=== PATIENT | male | born 1940 | race Caucasian/White ===

== ENCOUNTER 2019-07-25 05:32 | Inpatient (IN) | payer MEDICARE, OTHER, SELFPAY ==
[2019-07-11 12:48] VITALS: BMI 28.7
[2019-07-25] VITALS (19 sets, daily range): BP systolic 73–140; BP diastolic 31–72; PULSE 62–84; RESP 12–20; TEMP 35.5–37; O2SAT 88–99; BMI 28.0
--- NOTE | 2019-07-25 | DI.RAD.S_ITS ---
PROCEDURE: XR PELVIS 1-2V INDICATIONS: TOTAL HIP TECHNIQUE: Intra-operative view of the pelvis and hip acquired. COMPARISON: None. FINDINGS: Bones: Intraoperative devices prior to placement of arthroplasty prostheses are in expected positions. No fractures or suspicious bony lesions. Soft tissues: Overlying surgical retractors are present, along with other intraoperative changes. IMPRESSION: Fluoroscopy guidance was provided intraoperatively for left total hip arthroplasty. Dictated by: Bert Pacheco M.D. on 07/25/2019 at 10:53 Approved by: Bert Pacheco M.D. on 07/25/2019 at 10:54
[2019-07-25] MEDS: CELECOXIB 200 MG CAPSULE PO (07:11)
[2019-07-25] MEDS: PREGABALIN 75 MG CAPSULE PO (07:11)
[2019-07-25] MEDS: LACTATED RINGERS 1,000 ML 42 ML IV ×3 (07:11→10:09)
[2019-07-25] MEDS: ACETAMINOPHEN 325 MG TABLET 975 MG PO ×3 (07:11→20:04)
--- NOTE | 2019-07-25 07:45 | DI.RAD.S_ITS ---
PROCEDURE: XR PELVIS 1-2V INDICATIONS: post op ERICA TECHNIQUE: Single view(s) of the pelvis acquired. COMPARISON: [facility], CR, XR PELVIS 1-2V, 07/25/2019, 10:07. FINDINGS: Bones: Patient is status post left total hip arthroplasty. Left hip alignment is anatomic. Mild to moderate right hip joint osteophytic changes are seen. No fracture or dislocation. Soft tissues: Expected postsurgical changes in left hip and thigh soft tissues are seen. IMPRESSION: Postop changes from left total hip arthroplasty with anatomic left hip alignment. Dictated by: Bert Pacheco M.D. on 07/25/2019 at 11:27 Approved by: Bert Pacheco M.D. on 07/25/2019 at 11:28
--- NOTE | 2019-07-25 07:45 | PM.PREOP ---
Pre-operative Note Interval Note History & Physical reviewed/Exam performed by Physician: Yes Changes to H&P: No
[2019-07-25] MEDS: CEFAZOLIN 1 GM VIAL IV (07:50)
[2019-07-25] MEDS: TRANEXAMIC ACID 1,000 MG VIAL 1000 MG INJ ×2 (08:28→10:14)
--- NOTE | 2019-07-25 08:38 | SUR.OPER ---
Supine, head on pillow, torso on pink pad positioner. Iliac crest at flex of foot end of table. Gel roll under operative hip. Both arms secured on arm boards <90 degrees abduction.
[2019-07-25] MEDS: MORPHINE 4 MG/ML INJ INJ (08:44)
[2019-07-25] MEDS: KETOROLAC 30 MG/ML VIAL IV (08:45)
[2019-07-25] MEDS: ROPIVACAINE 0.5% PF 5 MG/ML 20ML VIAL 60 ML INJ (08:45)
--- NOTE | 2019-07-25 10:45 | PM.OP.1 ---
Operative Date/Time/Diagnoses Date of procedure: 07/25/19 Time of procedure: 10:45 Pre-op diagnosis: Left hip degenerative joint disease Post-op diagnosis: same Procedure & Clinicians Procedure: Left total hip arthroplasty via direct anterior approach (CPT code 87727 with delivery assistant) Same procedure as scheduled: Yes Indications: Patient is an 79-year-old male with severe left hip DJD. The patient has pain with activities and at rest, limited ambulation and activity tolerance, difficulties with ADLs, and failure of conservative treatment. We have discussed the nature of condition, treatment options, risks and benefits, and patient elects to proceed with total hip arthroplasty via direct anterior approach and gives informed consent. Surgeon: Magdy Chung Field Sampling Technician: Philippe Quinn Anesthesia Type: General Operative Notes Closure Type: primary Specimen(s): none sent Prosthetic devices, grafts, tissues, transplants, or devices: Acetabulum: Cordova and Nephew R3 acetabular component size 54 mm Femoral component: Cordova and Nephew Anthology stem size 6 with high offset Femoral head: 36 mm + 4 cobalt chrome Estimated Blood Loss (mL): 200 Blood products transfused: none Procedure in detail: Patient brought to the operating room and after administration of IV antibiotics and satisfactory induction of anesthetic placed supine on the [place] table with both feet in the ski boots and all bony prominences well padded. Left hip and lower extremity prepped and draped in the usual sterile fashion. Incision created beginning 2 cm lateral and distal to the ASIS and carried sharply through the skin and skin subcutaneous tissues down to the fascia which was then divided longitudinally and the TFL muscle was stripped posteriorly, superior neck retractor then placed and a Gelpi retractor distally. Anterior femoral circumflex vessels were cauterized and the anterior capsule was entered with a medial inferior capsular release and a lateral posterior capsular excision. Location of the femoral neck cut was then identified fluoroscopically and created with the oscillating saw. Femoral head removed with the corkscrew device. Acetabular retractors then placed an acetabular labrum and osteophyte was excised with sequential reaming of the acetabulum to 53 mm with an excellent circumferential ream and fit with the trial. A size 54 mm Cordova and Nephew R3 acetabular component was selected inserted and impacted into position with excellent fixation and and position confirmed fluoroscopically. Permanent liner then inserted. Proximal femoral releases were then completed, and proximal femoral retractors placed the leg was extended externally rotated and abducted. The proximal femur was entered and chili pepper broach then placed which was still and a moderate amount of varus. Further lateral releases were performed and sequential broaching to 6 was performed with an excellent fit with the broach which was also confirmed fluoroscopically. Trial reductions performed yielded excellent position leg length and stability. The trial and broach were then removed and a permanent size 6 Cordova and Nephew anthology component was inserted and impacted into position with excellent position and fixation achieved which was confirmed fluoroscopically. Trial reduction was then performed the +4 ball which yielded excellent leg length range of motion and stability so the trial ball was exchanged for a 36 mm +4 cobalt chrome ball. Final reduction was performed and final fluoroscopic images demonstrated excellent position and fit of the implant excellent leg length. Stability was also checked to 90? of external rotation with the leg in the neutral position. Periarticular tissues were injected with combination of ropivacaine, morphine, and Toradol. The TFL fascia was repaired with a 1. Running Vicryl. Subcutaneous tissues closed with 2 O Vicryl an anchor intracuticular stitch as well as skin glue. Sterile dressings applied anesthetic terminated the patient taken to postanesthetic recovery in satisfactory condition. Complications: none Post-operative Condition: stable Disposition: PACU Plan for aftercare: Patient will be admitted to the acute care de, and anticipate discharge on postop day 1 with follow-up in office in 10-14 days. Outpatient physical therapy will be arranged and patient will continue to gradually increase activities as tolerated.
[2019-07-25] MEDS: SODIUM CHLORIDE 0.9% FLUSH 10 ML IV (12:44)
[2019-07-25] MEDS: LACTATED RINGERS 1,000 ML 125 ML IV ×2 (12:44→20:22)
--- NOTE | 2019-07-25 14:18 | PC.NURSE ---
AM shift pt arrived at 1130 from PACU.VSS, other than BP which is low at baseline (90's/70's). LR started at 125/hr. Aquacel CDI. Tolerating full liquids with no adverse effects. PT working with pt currently (1420) and tolerating well.
--- NOTE | 2019-07-25 15:00 | PT.IIE ---
Current Diagnoses Unilateral primary osteoarthritis, left hip (07/25/19) Other specified joint disorders, left knee (07/25/19) Surgery Performed Operation Date: 07/25/19 07:45 Actual Procedures p Total Hip Arthroplasty/Anterior Approach(Left) - Magdy Chung MD Surgical History (Last Updated 07/11/19 @ 13:13 by Loni Abbasi, RN) Hx of cholecystectomy (Acute) Hx of eye surgery (Acute ~2002) Hx of tonsillectomy (Acute) Medical History (Last Updated 07/11/19 @ 15:02 by Loni Abbasi RN) Acid reflux (Acute) Aortic valve disorder (Acute) Urbina's esophagus (Acute) BPH (benign prostatic hyperplasia) (Acute) Chest pain, atypical (Acute) HLD (hyperlipidemia) (Acute) HTN (hypertension) (Acute) Mitral valve disorder (Acute) Overactive bladder (Acute) Tricuspid valve disorder (Acute) Physical Therapy Inpatient Evaluation/Re-Eval M1 PT/OT-IP Prior Functional Status Start: 07/25/19 13:53 Freq: NEEDED Status: Active Protocol: Document 07/25/19 15:00 RS (Rec: 07/25/19 15:49 RS [email or web address]) Medical Review Prior Functional Status Medical History Reviewed Yes Diet/Fluid Consistency Regular Communication no known deficits Mobility and Gait ind without AD, denies falls though does endorse LLE giving out occassionally Activities of Daily Living and IADL's denies need for assist with self-care Social History Household Members spouse Living Arrangements House Number of Floors (Floors) Two Floors Number of Stairs To Enter/Railing? 3 steps with L ascending rail to lower level, 10 more step with L ascending rail to main floor Home Equipment Four Wheel Walker Employment Status Retired Additional Social History Comment also has a walking stick that he has been using on the stairs M2 PT-IP Current Condition Start: 07/25/19 13:53 Freq: NEEDED Status: Active Protocol: Document 07/25/19 15:00 RS (Rec: 07/25/19 15:49 RS [email or web address]) Physical Therapy Current Condition Current Condition Evaluation Date 07/25/19 Treatment Diagnosis L anterior ERICA Onset Date 07/25/19 Precautions Anterior Hip Precautions No Hip Extension,No Hip External Rotation Weight Bearing Status Weight Bearing Status Weight Bear as Tolerated M3 PT-IP Subjective Start: 07/25/19 13:53 Freq: NEEDED Status: Active Protocol: Document 07/25/19 15:00 RS (Rec: 07/25/19 15:49 RS [email or web address]) Subjective Physical Therapy Visit Type Type Initial Evaluation Visit Start Time 14:00 Visit Stop Time 15:00 Total Visit Minutes 60 Physical Therapy Visit Comments Patient Comments Pt reports feeling good, very motivated to participate. Patient Goals go home tomorrow Therapy Pain Assessment Pain When Pain Assessed At Rest Pain Present Pain Present Denied Pain M4 PT-IP Mobility and Gait Start: 07/25/19 13:53 Freq: NEEDED Status: Active Protocol: Document 07/25/19 15:00 RS (Rec: 07/25/19 15:49 RS [email or web address]) PT-Bed Mobility Assessment Supine to Sit Supine to Sit Standby Assistance,Head of Bed Elevated,Bedrails Scooting Scooting to Edge of Bed Standby Assistance PT-Transfer Assessment Sit to and From Stand Sit to and from Stand Contact Guard Assistance Equipment Transfer Assistive Device Gait Belt,Front Wheeled Walker Transfers Transfer Destination Bed,Chair Transfer Technique Stand Step Pivot Transfer Ability Level of Assist Contact Guard Assistance Comments Mobility Comments Pt used R foot under L ankle to pivot to EOB. To stand up pt kept bilat feet symmetrical and was able to stand right up without issue. Initially pt only able to take very small steps with transfers, but the longer he as up he was able to take more ideal step lengths. Pt was also a little shaky, almost ataxic at first but this improved during session. Gait Assessment Gait Gait Assistance Required: Contact Guard Assist Distance (Feet) 100 Able to Maintain Weight Bearing Status Yes During Gait Assistive Devices Assistive Device Gait Belt,Front Wheeled Walker Gait Deviations General Gait Pattern Ataxic,Decreased Stride Length ,Decreased Feet Clearance Factors Limiting Gait Function Factors Limiting Gait Function Decreased Activity Tolerance, Decreased Sensation,Decreased Strength,Poor Balance Comments Gait Comments Just as with transfers, pt was shaky and almost ataxic to begin with, almost as if pt's proprioception in L hip/knee wasn't 100% intact. Proprioception and sensation at GT/ankle was intact and not tested more proximally, but a local was used for this surgery so it might not have been completely worn off. Pt initially trying not to use the FWW very much, but control of the LLE worsened with this approach. Pt was encouraged to use BUE on walker more forcefully in LLE SLS, and this made a dramatic difference in pt's overall stability and gait quality. Pt able to walk 100ft without stopping, wanting to walk more , but due to previous low BPs and this being the first walking attempt, pt was capped at 100ft this session. Stair Climbing Assessment Comments Stair Climbing Comments not yet tested PT-Balance Assessment Sitting Balance and Reactions Static Sitting Balance Ability Normal Dynamic Sitting Balance Ability Normal Standing Balance and Reactions Static Standing Balance Ability Good Dynamic Standing Balance Ability Fair Device Used FWW M5 PT-IP Objective Assessments Start: 07/25/19 13:53 Freq: NEEDED Status: Active Protocol: Document 07/25/19 15:00 RS (Rec: 07/25/19 15:49 RS [email or web address]) Orientation Orientation/Cognition Level of Alertness Alert Orientation Name,Age,Birthday,Month,Date, Year,Day of Week,Place, Situation Language Function Ability No Deficits Noted Safety Awareness Understands Safety Issues Memory Description No Deficits Noted Gross Range of Motion Upper Extremity ROM Assessment Within Functional Limits Lower Extremity ROM Impairments BLE WFL allowed by L ant hip precautions Strength Upper Extremity Strength Assessment Within Functional Limits Lower Extremity Strength Assessment Left Impaired Comments Strength Comments LLE grossly 3/5 M6 PT-IP Treatment Start: 07/25/19 13:53 Freq: NEEDED Status: Active Protocol: Document 07/25/19 15:00 RS (Rec: 07/25/19 15:49 RS [email or web address]) Physical Therapy Treatment Exercises Exercises Ankle Pumps,Gluteal Sets,Quad Sets,Heel Slides Education Education Provided Precautions,Weight Bearing Status,Post-Op Packet,Safety M7 PT-IP Assessment and Plan Start: 07/25/19 13:53 Freq: NEEDED Status: Active Protocol: Document 07/25/19 15:00 RS (Rec: 07/25/19 15:49 RS [email or web address]) PT Summary Assessment and Plan Potential Rehabilitation Potential Excellent Status of Condition at Evaluation Stable Summary Impairments Strength,Balance,Coordination, Sensation,Transfers,Gait Assessment Summary Pt presents with LLE weakness and soreness that is expected after a L ERICA. Pt is actually mobilizing fairly well, only requiring CGA with FWW and able to tolerate 100ft on first mobilizing attempt. However, this is below pt's reported functional baseline. Pt has great potential for functional improvement and will benefit from 1-2 more acute PT sessions prior to discharge home with . Pt's goal is to be able to use a 4WW at discharge, but as of today pt is not ready for it. As local anesthesia completely wears off, it's anticipated that pt's balance/LLE control will improve, so pt MAY be safe for this tomorrow. 4WW, stair training, and any necessary caregiver training will need to be completed prior to discharge, but none of this is expected to be an issue. Once this is completed pt will be safe to discharge home with and continue with OPPT as ordered by MD. Goals Bed Mobility Goal Independent Transfer Goal Standby Assistance,Front Wheeled Walker,Four Wheeled Walker Gait Goal Standby Assistance,Front Wheel Walker,Four Wheel Walker Gait Distance 200 Other Goals up/down 3-13 steps w/ 1 rail, walking stick, and CGA Days to Meet Goals 2 Frequency of Treatment Frequency Of Treatment Twice a Day Treatment Plan Physical Therapy Treatment Plan Bed Mobility Training,Transfer Training,Gait Training, Therapeutic Exercise,Balance Retraining,Post Op Education, Discharge Planning,Hot or Cold Pack,Neuromuscular Re-ed, Coordination Retraining,Manual Therapy Other Recommendations and Next Treatment 4ww trial, stairs Focus Recommendations To Nursing Amount of Assist Needed 1 Person Assist Discharge Recommendations PT Discharge Recommendations Home with Assistance, Outpatient PT Equipment Needed for Home Before might need FWW Discharge
[2019-07-25] MEDS: CEFAZOLIN 2 GM/100 ML FROZ.PIGGY IV (17:19)
[2019-07-25] MEDS: SIMVASTATIN 20 MG TABLET PO (20:03)
[2019-07-25] MEDS: ASPIRIN EC 81 MG TABLET PO (20:04)
[2019-07-25] MEDS: TAMSULOSIN 0.4 MG CAPSULE PO (20:04)
[2019-07-26 00:10] VITALS: BP 117/59; PULSE 86; RESP 18; TEMP 36.7; O2SAT 94
[2019-07-26] MEDS: CEFAZOLIN 2 GM/100 ML FROZ.PIGGY IV (00:26)
[2019-07-26 03:32] VITALS: BP 114/58; PULSE 74; RESP 18; TEMP 36.7; O2SAT 96
[2019-07-26] MEDS: PANTOPRAZOLE 20 MG TABLET PO (06:09)
[2019-07-26 06:11] LABS: Hematocrit 35.9 % (41-53); Hemoglobin 11.7 g/dL (13.5-17.5)
--- NOTE | 2019-07-26 07:35 | P.DS_ITS ---
History of Present Illness History of Present Illness Date Patient Seen: 07/26/19 Time Patient Seen: 07:30 Chief complaint: [id number] Narrative: Patient is an 79-year-old male with severe left hip DJD. The patient has pain with activities and at rest, limited ambulation and activity tolerance, difficulties with ADLs, and failure of conservative treatment. We have di scussed the nature of condition, treatment options, risks and benefits, and patient elects to proceed with total hip arthroplasty via direct anterior approach and gives informed consent. Discharge Providers Provider Date of admission: 07/25/19 05:32 Discharge Date: 07/26/19 Primary care physician: Charlotte Tay MD Consults: 07/25/19 11:51 Consult to Discharge Planning Routine Comment: Consult to Physical Therapy Evaluate & Treat Comment: Physician Instructions: post op ERICA protocol Consult to Respiratory Therapy Evaluate & Treat Comment: Physician Instructions: Evaluate and treat Discharge provider: Sarthak Raymond PA-C Summary Hospital Course Discharge Diagnosis: s/p total hip arthroplasty, anterior approach Hospital Course: Post op day 1 s/p total hip arthroplasty anterior approach with Dr. Chung. Hospital course was unremarkable. Post op day 1 patient was ready for discharge home. Patient complains of numbness on entire left anterior thigh. Patient already has prescriptions for oxycodone, tylenol and ibuprofen. Patient eating and voiding without difficulty or assistance. Prior to discharge patient was mobilizing with physical therapy. Kathrine has outpatient PT scheduled. Dressing was intact with small amount of drainage. Lovenox for DVT prophylaxis. Status at Discharge Cognitive/behavioral status at discharge: oriented Functional status at discharge: uses cane/walker Time Spent with Patient Time spent: Less than 30 minutes Exam Vital Signs (past 8 hours): - 07/26/19 00:10 07/26/19 03:32 Temperature 98.0 F 98.1 F Pulse Rate 86 74 Respiratory Rate 18 18 Blood Pressure 117/59 L 114/58 L Pulse Oximetry 94 96 Oxygen Delivery Method Room Air Oxygen Flow Rate 0 Narrative Exam Narrative: 79 year old man laying in bed comfortably, in no apparent distress. A&Ox3. Dressing is intact on left anterior hip with small shadow drainage at proximal medial end and distal middle end. Left hip is dry, warm with no lesions or rashes. Patient is able to actively dorsiflex/plantar flex. Sensory function is grossly intact to light touch in lower extremities, except anterior left thigh. Dorsalis pedis 2+ b/l. Negative aundrea's sign. Objective Labs Result Diagrams: 07/26/19 05:41 Labs: Laboratory Results - last 24 hr 07/26/19 05:41 Hgb 11.7 L Hct 35.9 L Discharge Plan Discharge Plan Patient Disposition: Home Discharge comment: Discharge home pending PT Discharge Med Rec/Prescriptions Prescriptions: New acetaminophen 325 mg Tablet 975 mg PO TID Qty: 40 RF: 0 enoxaparin [Lovenox] 40 mg/0.4 mL Syringe 40 mg subcut DAILY 9 Days Qty: 9 RF: 0 Continued tamsulosin 0.4 mg Capsule 0.4 mg PO BEDTIME RF: 0 simvastatin 20 mg Tablet 20 mg PO BEDTIME RF: 0 omeprazole 20 mg Tablet,Delayed Release (Dr/Ec) 20 mg PO QPM RF: 0 Discontinued aspirin 81 mg Tablet,Delayed Release (Dr/Ec) 81 mg PO BEDTIME RF: 0 Follow up/Referrals: Magdy Chung MD [Physician] - Provider Discharge Instructions Diet: Diet as Tolerated Activity: Weight bear as tolerated. Please use walker or cane for support. Cold/Heat Therapy: Ice pack as needed. Other treatments: Please see [facility] guide. Skin/Wound/Dressing Care Report to your healthcare provider any signs of infection, such as:: chills, fever, night sweats, unusual drainage and unusual redness Dressing: Leave aquacel dressing in place until your follow up appointment, it will be removed then. Call the office if dressing becomes saturated. Visit Report/Discharge Packet Instructions: DI for Hip Replacement, DI for Constipation, How to Prevent Falls, Enoxaparin Injection Visit Report Forms: Stroke Signs & Symptoms Discharge Data Primary Care Provider: Charlotte Tay
[2019-07-26 07:52] VITALS: BP 107/66; PULSE 72; RESP 15; TEMP 36.5; O2SAT 97
[2019-07-26] MEDS: ASPIRIN EC 81 MG TABLET PO (08:25)
[2019-07-26] MEDS: HYDROMORPHONE 2 MG TABLET PO (08:25)
[2019-07-26] MEDS: ACETAMINOPHEN 325 MG TABLET 975 MG PO (08:26)
[2019-07-26] MEDS: ENOXAPARIN 40 MG/0.4 ML SYRINGE SUBCUT (10:32)
--- NOTE | 2019-07-26 10:42 | PT.IPTN ---
Current Diagnoses Unilateral primary osteoarthritis, left hip (07/25/19) Other specified joint disorders, left knee (07/25/19) Surgery Performed Operation Date: 07/25/19 07:45 Actual Procedures p Total Hip Arthroplasty/Anterior Approach(Left) - Magdy Chung MD Physical Therapy Treatment Note M2 PT-IP Current Condition Start: 07/25/19 13:53 Freq: NEEDED Status: Active Protocol: Document 07/25/19 15:00 RS (Rec: 07/25/19 15:49 RS [id number]) Physical Therapy Current Condition Current Condition Evaluation Date 07/25/19 Treatment Diagnosis L anterior ERICA Onset Date 07/25/19 Precautions Anterior Hip Precautions No Hip Extension,No Hip External Rotation Weight Bearing Status Weight Bearing Status Weight Bear as Tolerated M3 PT-IP Subjective Start: 07/25/19 13:53 Freq: NEEDED Status: Active Protocol: Document 07/26/19 09:26 CLB (Rec: 07/26/19 10:42 CLB [id number]) Subjective Physical Therapy Visit Type Type Treatment Note Visit Start Time 09:26 Visit Stop Time 10:02 Total Visit Minutes 36 Number of CAR[employer]URE POWER PLANT ENGINEER Visits 1 Physical Therapy Visit Comments Patient Comments Pt eager to work with therapy and trial stairs so he can go home. Therapy Pain Assessment Pain When Pain Assessed During Mobility Pain Present Pain Present Pain Reported Location Left Hip Intensity 1 Scale Used Numeric (1 - 10) M4 PT-IP Mobility and Gait Start: 07/25/19 13:53 Freq: NEEDED Status: Active Protocol: Document 07/26/19 09:26 CLB (Rec: 07/26/19 10:42 CLB [id number]) PT-Bed Mobility Assessment Supine to Sit Supine to Sit Standby Assistance Sit to Supine Sit to Supine Standby Assistance Scooting Scooting to Edge of Bed Standby Assistance PT-Transfer Assessment Sit to and From Stand Sit to and from Stand Standby Assistance Equipment Transfer Assistive Device Gait Belt,Front Wheeled Walker ,4 Wheeled Walker Transfers Transfer Destination Bed,Chair,Toilet Transfer Technique Stand Step Pivot Transfer Ability Level of Assist Standby Assistance Comments Mobility Comments Pt able to perform all bed mobility and transfers SBA. Gait Assessment Gait Gait Assistance Required: Standby Assistance,Contact Guard Assist Distance (Feet) 500 Able to Maintain Weight Bearing Status Yes During Gait Assistive Devices Assistive Device Gait Belt,4 Wheeled Walker Gait Deviations General Gait Pattern Ataxic,Decreased Stride Length ,Decreased Feet Clearance Factors Limiting Gait Function Factors Limiting Gait Function Decreased Activity Tolerance, Decreased Sensation,Decreased Strength,Poor Balance Comments Gait Comments Pt was able to ambulate in brower ~500ft using 4WW with steady gait and small step through gait pattern to prevent Anterior ERICA precautions. Stair Climbing Assessment Evaluation Level of Assist On Stairs Standby Assistance,Contact Guard Assistance Devices Stair Climbing Assistive Devices Left Railing Technique/Endurance Stair Climbing Direction Ascend and Descend Stair Climbing Technique Step to Step Number of Steps Climbed 3 Stair Climbing Set # Repetitions (reps) 3 Comments Stair Climbing Comments Pt able to climb stairs with proper sequencing and good safety awareness. Pt had no increase in pain with stair climbing. PT-Balance Assessment Sitting Balance and Reactions Static Sitting Balance Ability Normal Dynamic Sitting Balance Ability Normal Standing Balance and Reactions Static Standing Balance Ability Good Dynamic Standing Balance Ability Fair Device Used FWW M5 PT-IP Objective Assessments Start: 07/25/19 13:53 Freq: NEEDED Status: Active Protocol: Document 07/25/19 15:00 RS (Rec: 07/25/19 15:49 RS [id number]) Orientation Orientation/Cognition Level of Alertness Alert Orientation Name,Age,Birthday,Month,Date, Year,Day of Week,Place, Situation Language Function Ability No Deficits Noted Safety Awareness Understands Safety Issues Memory Description No Deficits Noted Gross Range of Motion Upper Extremity ROM Assessment Within Functional Limits Lower Extremity ROM Impairments BLE WFL allowed by L ant hip precautions Strength Upper Extremity Strength Assessment Within Functional Limits Lower Extremity Strength Assessment Left Impaired Comments Strength Comments LLE grossly 3/5 M6 PT-IP Treatment Start: 07/25/19 13:53 Freq: NEEDED Status: Active Protocol: Document 07/26/19 09:26 CLB (Rec: 07/26/19 10:42 CLB [id number]) Physical Therapy Treatment Exercises Exercises Ankle Pumps,Gluteal Sets,Quad Sets,Heel Slides Education Education Provided Precautions,Weight Bearing Status,Post-Op Packet,Safety Other Treatments Other Treatment Performed Pt recalled 2/2 hip precautions. M7 PT-IP Assessment and Plan Start: 07/25/19 13:53 Freq: NEEDED Status: Active Protocol: Document 07/26/19 09:26 CLB (Rec: 07/26/19 10:42 CLB [id number]) PT Summary Assessment and Plan Potential Rehabilitation Potential Excellent Status of Condition at Evaluation Stable Summary Impairments Strength,Balance,Coordination, Sensation,Transfers,Gait Assessment Summary Pt with good pain control mobilized with 4WW with good safety awareness and steady gait. Pt was able to put full weight on his LLE with little to no increase in pain. Pt was able to climb stairs successfully recalling step sequencing. Pt seems able to d /c home with assist of and OPPT. Goals Bed Mobility Goal Independent Transfer Goal Standby Assistance,Front Wheeled Walker,Four Wheeled Walker Gait Goal Standby Assistance,Front Wheel Walker,Four Wheel Walker Gait Distance 200 Other Goals up/down 3-13 steps w/ 1 rail, walking stick, and CGA Days to Meet Goals 2 Frequency of Treatment Frequency Of Treatment Twice a Day Treatment Plan Physical Therapy Treatment Plan Bed Mobility Training,Transfer Training,Gait Training, Therapeutic Exercise,Balance Retraining,Post Op Education, Discharge Planning,Hot or Cold Pack,Neuromuscular Re-ed, Coordination Retraining,Manual Therapy Recommendations To Nursing Amount of Assist Needed 1 Person Assist Discharge Recommendations PT Discharge Recommendations Home with Assistance, Outpatient PT
--- NOTE | 2019-07-26 12:05 | CM.DANOTE ---
DCP: Assessment: reviewed Chart. Patient is a 79 yr old male who was admitted with a ERICA on 07/25/[address] Sheldon Stone and PCP is Dr. Charlotte Tay. Patient lives with spouse Emilee in [facility] level home. Met with patient at bedside and explained CM/SW role. Patient is alert and oriented. Has OP PT set up with [facility] on Aug 01. Patient lives with spouse Emilee. Insurance 1 payer: Medicare, 2nd payor: [employer]. No identified d/c planning needs at this time. Discharge Planning/Care Management CM Discharge Assessment Start: 07/26/19 11:55 Freq: Status: Active Protocol: Document 07/26/19 11:56 KJS (Rec: 07/26/19 11:59 KJS [id number]) Discharge Planning Assessment Assigned Regional Operations Manager ELLIOT Grady: Celia Cordova RN DPOA/Assigned Designee Name Emilee Deras () [phone] Advance Directives? No: Declines further information History Provided By Patient Has Patient been admitted in last 30 No days? Prior Living Arrangements House Household Members spouse Type of transporation used prior to Drives own vehicle admit Independent with ADL's Yes Is patient alert and oriented? Yes Caregiver for Another No DME Already Rented / Owned FWW / Walker Patient/Family Preference OP PT Therapy Barriers to Discharge No Referrals Initiated None needed Whiteboard Updated in Patient Room with Yes name and ext. # of Regional Operations Manager Review Status In Process Next Review Type Continued Stay Review Pre-Anesthesia Assessment Start: 07/11/19 12:48 Freq: Status: Complete Protocol: Document 07/11/19 12:48 CAB (Rec: 07/11/19 15:01 CAB [id number]) Pre-Anesthesia Assessment Patient Also Known As Frankie Mcmullen (AKA) Patient Information Reviewed Via Phone Assessment Assessment Completed With Patient Primary Care Provider Charlotte Tay Seen Specialist in Last 12 Months Yes Specialist Seen Boxcar Weigher,Orthopedist, Urologist Comment Surgeon H&P not available at time of PAC assessment Primary Language Spanish Fruit Or Nut Crops Farm Manager Required No Height 172.72 cm Weight 85.729 kg Body Mass Index (BMI) 28.7 Hearing Ability Normal Visual Assist Glasses,Magnifying Glass Dentition Type Teeth, Natural Present,Teeth, Missing Barriers to Learning None Other Aids No Hx Anesthesia Reactions No Hx Family Anesthesia Reaction No Hx Malignant Hyperthermia No Hx Blood Transfusions No Anesthesia Review Requested No alcohol intake current alcohol intake frequency a few times a week Smoking Status Former smoker how long ago did patient quit smoking Quit 1982 Substance Use Type does not use Pain Present Pain Reported Musculoskeletal Symptoms Abnormal Gait,Difficulty Walking,Joint Pain History of Falling (Recent or History of No ) Patient is completely paralyzed or No completely immobile Mental Status Oriented to own ability Comment Occasional walking stick Is patient on oxygen? No Does patient have MENDOSA/SOB No Hx Sleep Apnea No Currently Taking a Beta Joselito No Can You Climb a Flight of Stairs Without Yes SOB Hx Chest Pain Yes: Atypical-negative ischemic workup Hx SOB No Hx Syncope or Dizziness No Anti-Coagulant Therapy No Has a Boxcar Weigher Yes: Dr. Forman-last visit 11/04/18 scanned to record Cardiac Testing No Hx Pacemaker/ICD No Pacemaker Rep Required? No Diet Type At Home Regular dysphagia No Urinary Catheter Present No Hx Urinary Self Catheterization No Diabetes No Hx Drug Resistant Organism No Presence of External or Internal Medical No Devices Have you traveled outside the [facility] in the last 30 days? Marital Status Lives With spouse Prior Living Arrangements House Number of Floors (Floors) Two Floors Support System Child/Children,Friend(s), Spouse Does the Patient Have Assistance After Yes Surgery Patient Discharge Plan Description Return Home Comment Pt advised 1-2 day length of stay per surgeon Feels Safe in Current Environment Yes Been Physically Hurt or Threatened By a No Person in Current Environment Do you have thoughts of harming yourself None or others? Are you currently considering suicide? No Do you have a plan to hurt yourself or No Plan others? Do You Have Any Spiritual Beliefs That No May Affect Your HC Choices? Do You Have Any Cultural Practices That No May Affect Your HC Choices? Spiritual Referral None Comment Holiness Who Can We Speak to About Patient's Care Family, friends Identifying Code for Release of Patient Declines to issue Information Health Care Proxy/Next of Kin Radha () Health Care Proxy Emergency Contact Name Radha () Emergency Contact Advance Directives? No: Declines further information PAC Instructions Durable medical equipment, Medications to take/avoid, Nasal antibiotic,No ETOH/ petroleum product on skin DOS, Ortho class,Post-op transportation,Pre-surgical wash,Sturdy shoes/comfortable clothes,Do not bring valuables and remove jewelry
--- NOTE | 2019-07-26 12:20 | PC.NURSE ---
Discharge: Pt feels ready to d/c home. Has voided. Tolerates diet w/out problems. Pain in control and is minimal at this point. Rx given. seen by PT and received their final instructions. Reviewed wound care instructions. Lovenos teaching given and pt gave own injection using correct tech. Discussed site rotation and sharps disposal. Rest of d/c instructions reviewed. Questions answered. Friend here to give pt a ride home. Pt d/c home via auto w/friend.
== END 2019-07-26 12:00 | disposition home or self-care (01) | DRG 470 ==
PROVIDERS: Admitting Provider Orthopaedic Surgery; Family Provider Internal Medicine; PCP Internal Medicine; Visit Provider Orthopaedic Surgery
PROC: 0SRB02Z Replacement of Left Hip Joint with Metal on Polyethylene Synthetic Substitute, Open Approach (ICD-10-PCS; CPT 27130; principal; 2019-07-25 07:45)
DX: M16.12 Unilateral primary osteoarthritis, left hip (principal)
CPT/HCPCS: 36415; 72170; 76000; 85014; 85018; 94760; 97110; 97116; 97161; 97530; C1776; J0690; J1100; J1650; J1885; J2250; J2270; J2405; J2704; J3010

== ENCOUNTER → 2020-05-08 14:47 | Outpatient (CLI) | payer MEDICARE, OTHER, SELFPAY ==
[2019-07-25 15:01] VITALS: BMI 28.0
--- NOTE | 2020-05-08 14:57 | DI.ECHO.S_ITS ---
Echocardiogram Report + + :Name: JENNIFER DORMAN Study Date: 05/08/2020 Height: 68 in : :[facility] Weight: 186 lb : : Gender: Male BSA: 2.0 m2 : :: 1940 Age: 79 yrs BP: 138/64 mmHg: :Reason For Study: Mitral and Aortic valve disorders : :Ordering Physician: Gloria : :Srinivasan Arreguin Performed By: Kyara Gamez : :Referring: GLORIA ARREGUIN : + + Interpretation Summary The left ventricle is normal in size and wall thickness. The ejection fraction is estimated to be 60-65%. There has been no significant change LVEF since the previous exam. The right ventricle is at the upper limits of normal in size. The right ventricular systolic function is normal. There is mild to moderate aortic regurgitation. Compared to the prior echo study, there has been no change in the severity of aortic regurgitation. There is mild to moderate tricuspid regurgitation. The right ventricular systolic pressure is estimated to be at least 37 mmHg based on an estimated right atrial pressure of 3 mm Hg. Compared to the prior echo exam, there has been a decrease in the severity of pulmonary hypertension. Procedure: A two-dimensional transthoracic echocardiogram with color flow and Doppler was performed. The study quality was technically adequate. Comparison is made with the echocardiogram of 09/28/2017. The patient was in sinus bradycardia with heart rates between 55-64 bpm during the exam. The patient had occasional PVCs during the exam. Left Ventricle: The left ventricle is normal in size and wall thickness. There is no thrombus. The ejection fraction is estimated to be 60-65%. There has been no significant change since the previous exam. There are no focal wall motion abnormalities. Diastolic parameters suggest a relaxation abnormality of the left ventricle, consistent with probable normal filling pressures. Right Ventricle: The right ventricle is at the upper limits of normal in size. The right ventricular systolic function is normal. Atria: The left atrium is mildly dilated. The left atrium has remained unchanged in size since the prior echo exam. Right atrial size is normal. There is no Doppler evidence for an interatrial shunt. Mitral Valve: The mitral valve leaflets appear borderline thickened, but open well. There is mild mitral annular calcification. Redundant elongated chordae are noted. There is mild mitral regurgitation. Compared to the prior echo study, there has been no change in the severity of mitral regurgitation. Aortic Valve: The aortic valve is trileaflet. The aortic valve opens well. There is mild aortic valve sclerosis. There is no aortic valve stenosis. There is mild to moderate aortic regurgitation. Compared to the prior echo study, there has been no change in the severity of aortic regurgitation. Tricuspid Valve: The tricuspid valve is normal in structure and function. The right ventricular systolic pressure is estimated to be at least 37 mmHg based on an estimated right atrial pressure of 3 mm Hg. There is mild to moderate tricuspid regurgitation. Compared to the prior echo exam, there has been a decrease in the severity of pulmonary hypertension. Pulmonic Valve: The pulmonic valve is not well seen, but is grossly normal. There is mild pulmonic regurgitation. Great Vessels: The aortic root is normal size. The ascending aorta is at the upper limits of normal in size. The IVC is of normal diameter and collapses greater than 50% with a sniff. This suggests a low right atrial pressure of 3 mm Hg. Pericardium/ Pleura There is no pericardial effusion. There is an anterior echo-free space consistent with a fat pad. There is no pleural effusion. MMode/2D Measurements & Calculations LVIDd: 4.5 cm LVOT diam: 2.2 cm LVIDs: 3.0 cm Ao root diam: 3.2 cm FS: 33.0 % asc Aorta Diam: 3.3 cm EPSS: 0.60 cm Ao Arch Diam (Prox Trans): 2.9 cm IVSd: 0.76 cm LVPWd: 0.69 cm LV diego. diameter/BSA (cm/m^2): 2.3 LV sys. diameter/BSA (cm/m^2): 1.5 LA A2 area: 24.4 cm2 RA long axis: 5.2 cm LA A4 area: 20.6 cm2 RA area: 16.4 cm2 LA length (vol): 5.9 cm RA vol: 43.5 ml LA vol: 72.1 ml RA : 21.9 ml/m2 LA vol index: 36.4 ml/m2 IVC diam: 1.9 cm RVD1 (basal): 4.0 cm TAPSE: 2.2 cm Doppler Measurements & Calculations Ao V2 max: 144.9 cm/sec LVOT Max Junior: 97.4 cm/sec Ao V2 mean: 93.6 cm/sec LV V1 max P.8 mmHg Ao max P.4 mmHg LV V1 VTI: 20.0 cm Ao mean P.0 mmHg REYNALDO(I,D): 2.5 cm2 Ao V2 VTI: 29.6 cm REYNALDO(V,D): 2.5 cm2 sev ratio: 0.68 REYNALDO indexed to BSA (cm^2/m^2): 1.3 AI P1/2t: 929.6 msec AI dec slope: 137.2 cm/sec2 MV E max junior: 60.5 cm/sec TR max junior: 271.9 cm/sec MV A max junior: 82.9 cm/sec TR max P.6 mmHg MV E/A: 0.73 PA V2 max: 84.6 cm/sec Med Peak E' Junior: 8.6 cm/sec PA V2 mean: 47.2 cm/sec E/E' med: 7.1 PA mean P.1 mmHg Lat Peak E' Junior: 9.6 cm/sec PA pr(Accel): 15.6 mmHg E/E' lat: 6.3 E/e' average: 6.7 MV dec time: 0.21 sec SV(LVOT): 75.1 ml Reading Physician:05:20 PM
== END ==
PROVIDERS: Family Provider Internal Medicine; PCP Internal Medicine; Referring Provider Internal Medicine Cardiovascular Disease; Visit Provider Internal Medicine Cardiovascular Disease
DX: I08.3 Combined rheumatic disorders of mitral, aortic and tricuspid valves (principal)
CPT/HCPCS: 93306

== ENCOUNTER → 2022-03-26 16:39 | Outpatient (CLI) | payer MEDICARE, OTHER, SELFPAY ==
[2019-07-25 15:01] VITALS: BMI 28.0
[2022-03-26 17:50] LABS: Hemoglobin A1C% w Est Avg Glu 5.5 % (4.0-6.0)
[2022-03-26 18:03] LABS: BUN Creatinine Ratio 9.3 (6-22); Blood Urea Nitrogen 10 mg/dL (9-20); Calcium 9.3 mg/dL (8.4-10.2); Carbon Dioxide 25 mmol/L (22-32); Chloride 103 mmol/L (98-107); Estimated Glomerular Filt Rate > 60 mL/min (>60); Glucose 91 mg/dL (80-110); HEMOLYSIS < 15 (0-50); Potassium 4.1 mmol/L (3.4-5.1); Sodium 137 mmol/L (137-145)
[2022-03-26 18:04] LABS: Add Manual Diff / Slide Review NO; Basophils Absolute Auto 0 /uL (0-100); Basophils Percent Auto 0.4 % (0-2); Eosinophils Absolute Auto 0 /uL (0-450); Eosinophils Percent Auto 0.6 % (2-4); Hematocrit 40.9 % (41-53); Lymphocytes Absolute Auto 1200 /uL (1100-4500); Lymphocytes Percent Auto 16.5 % (25-40); Mean Corpuscular HGB Conc 34.2 % (30-36); Mean Corpuscular Hemoglobin 31.8 PG (26-34); Mean Corpuscular Volume 93.2 fL (80-100); Monocytes Absolute Auto 600 /uL (0-900); Monocytes Percent Auto 8.3 % (3-14); Neutrophils Absolute Auto 5400 /uL (1500-7000); Neutrophils Percent Auto 74.2 % (50-75); Platelet Count 229 X10^3/uL (150-400); Red Blood Cell Count 4.39 X10^6/uL (4.5-5.9); White Blood Cell Count 7.3 X10^3/uL (4.5-11.0)
[2022-03-26 20:28] LABS: Appearance Urine UA CLEAR; Bilirubin Urine UA NEGATIVE (NEGATIVE); Color Urine UA YELLOW; Glucose Urine UA NEGATIVE (Negative); Ketones Urine UA NEGATIVE (NEGATIVE); Leukocyte Esterase Urine UA NEGATIVE (NEGATIVE); Nitrite Urine UA NEGATIVE (Negative); Occult Blood Urine UA NEGATIVE (Negative); Protein Urine UA TRACE (Negative); Urobilinogen Urine UA 0.2 E.U./dL (0.2); pH Urine UA 5.5 (4.5-8.0)
[2022-03-26 20:42] LABS: Amorphous Sediment Urine 1+; Bacteria Urine None Seen; Culture Indicated Urine Cult Not Indicated; RBC Urine None Seen (0-5/HPF); Squamous Epithelial Cell Urine 0-1 /HPF (0-5/HPF); WBC Urine 0-1/HPF (0-5/HPF)
== END ==
PROVIDERS: Family Provider Internal Medicine; PCP Internal Medicine; Referring Provider Orthopaedic Surgery; Visit Provider Orthopaedic Surgery
DX: Z01.818 Encounter for other preprocedural examination (principal); R73.9 Hyperglycemia, unspecified; Z01.812 Encounter for preprocedural laboratory examination; N39.0 Urinary tract infection, site not specified
CPT/HCPCS: 36415; 80048; 81001; 83036; 85025; 93005

== ENCOUNTER → 2022-06-03 10:27 | Outpatient (CLI) | payer MEDICARE, OTHER, SELFPAY ==
[2019-07-25 15:01] VITALS: BMI 28.0
[2022-06-03 12:03] LABS: COVID19 -Nasal RAPID Negative (Negative)
== END ==
PROVIDERS: Family Provider Internal Medicine; PCP Internal Medicine; Referring Provider Orthopaedic Surgery; Visit Provider Orthopaedic Surgery
DX: Z20.822 Contact with and (suspected) exposure to COVID-19 (principal)
CPT/HCPCS: 87635; C9803

== ENCOUNTER 2022-06-05 06:07 | Day surgery (SDC) | payer MEDICARE, OTHER, SELFPAY ==
[2019-07-25 15:01] VITALS: BMI 28.0
[2022-05-20 08:42] VITALS: BMI 27.5
[2022-06-05] VITALS (9 sets, daily range): BP systolic 107–144; BP diastolic 56–73; PULSE 56–78; RESP 16–22; TEMP 35.7–36.7; O2SAT 91–98; BMI 27.5
--- NOTE | 2022-06-05 06:00 | DI.RAD.S_ITS ---
PROCEDURE: XR HIP W PEL IF DONE RT 2V INDICATIONS: prosthesis placement TECHNIQUE: 3 intraoperative view(s) of the hip acquired. COMPARISON: None. FINDINGS: Intraoperative images obtained during right hip arthroplasty placement. IMPRESSION: Right hip arthroplasty. Dictated by: Santos Friedman M.D. on 06/05/2022 at 11:04 Approved by: Santos Friedman M.D. on 06/05/2022 at 11:04
[2022-06-05] MEDS: ACETAMINOPHEN 325 MG TABLET 975 MG PO (07:13)
[2022-06-05] MEDS: PREGABALIN 75 MG CAPSULE PO (07:13)
[2022-06-05] MEDS: CELECOXIB 200 MG CAPSULE PO (07:13)
[2022-06-05] MEDS: VANCOMYCIN 1,000 MG/200 ML PIGGYBACK 200 MG IV ×2 (07:27→08:20)
[2022-06-05] MEDS: LACTATED RINGERS 1,000 ML 100 ML IV ×2 (07:28→09:45)
--- NOTE | 2022-06-05 07:36 | PM.PREOP ---
Pre-operative Note COVID-19 COVID-19 status: Negative Interval Note History & Physical reviewed/Exam performed by Physician: Yes Changes to H&P: No
--- NOTE | 2022-06-05 07:37 | P.OP_ITS ---
Operative Date/Time/Diagnoses Date of procedure: 06/05/22 Time of procedure: 08:00 Pre-op diagnosis: Right hip osteoarthritis Post-op diagnosis: same Procedure & Clinicians Procedure: Right total hip arthroplasty anterior approach Same procedure as scheduled: Yes Indications: The patient has had progressively worsening right hip pain with radiographic changes consistent with arthritis. Non-operative management has failed and the patient has requested total hip replacement. The risks, benefits and alternatives to surgery were discussed with the patient prior to proceeding. Risks discussed included, but were not limited to, failure to relieve pain, leg length discrepancy, dislocation, stiffness, infection, nerve damage, deep venous thrombosis, pulmonary embolism, stroke, coma, heart attack, permanent paralysis and , as well as the potential need for eventual revision of the prosthetic. Surgeon: Martha Cordova Senior Electrical Controls Engineer: Philippe Quinn Anesthesia Type: General Operative Notes Findings: Severe right hip osteoarthritis, adequate stability Closure Type: primary Specimen(s): none sent Prosthetic devices, grafts, tissues, transplants, or devices: Cordova [employer] Nephew anthology size 7 high offset, +0 head, 54 mm R3 cup, one 6.5 mm screw Estimated Blood Loss (mL): 250 Blood products transfused: none Procedure in detail: The patient was brought to the operating room. Patient was carefully positioned in the supine position. Time-out was performed and antibiotics were given. Anesthesia was induced. He was positioned in the on the table in order to allow hyperextension of the hip. The right lower extremity was prepped and draped in a standard sterile fashion. An anterior right hip incision was made 1 fingerbreadth lateral to the anterior superior iliac spine and extended distally towards the greater trochanter. Dissection was carried out through skin and subcutaneous tissues. Superficial hemostasis was achieved. The fascia over the tensor fascia mciknley was defined and incised with a knife. Two Allis clamps were used to grasp the fascia. Tensor fascia mckinley was retracted laterally. A gelpi retractor was placed. Dissection was carried out down along the neck. The circumflex vessels were carefully identified and cauterized with the Aqua Mantis. There was good visualization of the femoral neck. A Cobra was placed superior to the neck and the gluteus fibers were carefully stripped from that superior aspect of the capsule. A 2nd retractor was placed along the inferior aspect of the neck. The rectus insertion along the capsule was partially released. A 3rd retractor that was then gently placed over the rim of the acetabulum under the rectus. Capsule was carefully incised and released from the intertrochanteric line circumferentially superior to the mid sagittal line and inferiorly to the mid sagittal line until the lesser trochanter was palpable. A tag stitch was placed both in the superior and inferior limb of the capsular insertion. Along the acetabulum capsule was also released up to the mid sagittal 12:00 position. A portion of the labrum was resected. A saw was used to perform an osteotomy at the level of the intertrochanteric line and the junction of the superior femoral neck leaving approximately 1 finger breath of residual inferior neck above the lesser trochanter. A 2nd cut was made along the femoral neck at the base of the head and a napkin ring of neck was removed. Corkscrew was placed in the femoral head and the head was removed without difficulty. Retractors were then repositioned around the acetabulum. Residual labrum was resected and additional osteophytes were removed. A reamer that was 4 mm below the templated size was placed by hand in the acetabulum and it was reamed to centralize the acetabulum. It was then reamed up to 2 under the templated size and fluoroscopy was brought in to confirm the position of the reaming and depth of reaming. I reamed 1 under the anticipated size and touched the rim with line to line reaming. A trial cup was placed and noted that it was appropriately sized and fluoroscopy confirmed position and depth. The component was open and inserted without difficulty fluoroscopic imaging was used to confirm that the cup had been adequately seated and was well positioned. It was further stabilized with a single screw. Neutral poly liner was placed. The cup was tested and noted to be stable. Attention was then directed to the femur. The femur was gently hyperextended additional capsular release was performed as needed in order to allow adequate visualization of the proximal femur with elevation of the femur. Patient was placed in a hyperextended slightly adducted position with maximum external rotation. Box osteotome was used to check for any residual neck as well as sclerotic bone along the trochanter. Kotlik pepper was placed in the femur. Additional broaching was performed. Canal finder was used to determine the alignment of the canal and position. Size 1 broach was placed. The canal was then appropriately broached up to the templated size as long as there was adequate stability of the broach and serial advancement of the broach without excessive impingement. Specific attention was directed at avoiding varus attempting to direct the distal aspect of the broach more anteriorly and avoiding excessive anteversion. Trial reduction showed acceptable range of motion, good stability, no posterior impingement, yarsani of leg length and appropriate lateral shuck. I also hyperflexed the hip and checked that there was no impingement anteriorly and there was good stability with flexion, adduction and internal rotation. Marcaine and Exparel were injected. The stem was placed without difficulty. Repeat trial reduction and x-ray showed acceptable overall position, length, and no evidence of the femoral fracture. Final head was placed. Wound was meticulously irrigated with normal saline. The hip was reduced and additional Exparel and Marcaine were injected. The capsule was closed with interrupted nonabsorbable sutures. The fascia of the tensor was closed with interrupted and running Vicryl. No drain was placed. Any tensor fascia mckinley muscle that appeared to be contused or injured which was a minimal amount was carefully resected. Capsule around the tensor was injected with Exparel and Marcaine. The skin was closed with barbed stitches for the subcutaneous tissue and skin. We also used surgical glue. The wound was dressed sterilely. Brief Betadine soak was also used and was meticulously irrigated with normal saline. Patient was transferred to recovery room in satisfactory condition. Complications: none Post-operative Condition: stable Disposition: Acute Care Plan for aftercare: The patient will be maintained on a standard total hip replacement protocol with weight bearing as tolerated and anterior hip precautions. The patient will receive Aspirin and sequential compression devices for DVT prophylaxis. The patient will be discharged home when safe for the home environment.
[2022-06-05] MEDS: NACL 0.9% IV (08:20)
[2022-06-05] MEDS: CEFAZOLIN IV (08:20)
[2022-06-05] MEDS: TRANEXAMIC ACID 1,000 MG VIAL 1000 MG INJ ×2 (08:22→10:21)
--- NOTE | 2022-06-05 08:46 | SUR.OPER ---
Patient supine on padded [place] table, one arm on padded arm board at <90, other arm padded and secured with tape across patient's chest, both legs secured in padded traction boots and positioned per surgeon, padded post at patient's groin, pressure points checked and padded. POSITION APPROVED BY SURGEON AND ANESTHESIA
[2022-06-05] MEDS: BUPIVACAINE LIPOSOME 266 MG/20 ML VIAL INJ (10:20)
[2022-06-05] MEDS: BUPIVACAINE 0.5% W/ EPI (PF) 30 ML VIAL INJ (10:20)
--- NOTE | 2022-06-05 10:23 | DI.RAD.S_ITS ---
PROCEDURE: XR HIP W PEL IF DONE RT 2V INDICATIONS: POST OP TOTAL RIGHT HIP TECHNIQUE: AP pelvis with lateral view(s) of the right hip(s). COMPARISON: [facility], CR, XR PELVIS WITH LATERAL HIP RIGHT, 03/12/2022, 11:50. [facility], CR, XR HIP W PEL IF DONE RT 2V, 06/05/2022, 9:26. 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 Right hip arthroplasty has been performed in the interval since prior exam obtained March 12, 2022. Orthopedic hardware is in expected position. No fractures or dislocations. Pelvic ring appears intact. No suspicious bony lesions. Soft tissues: The visualized bowel gas pattern is normal. No suspicious soft tissue calcifications. IMPRESSION: Expected postsurgical change for right hip arthroplasty. Dictated by: Adore Navarrete MD, PhD on 06/05/2022 at 11:03 Approved by: Adore Navarrete MD, PhD on 06/05/2022 at 11:04
[2022-06-05] MEDS: LACTATED RINGERS 1,000 ML 125 ML IV (11:35)
[2022-06-05] MEDS: ACETAMINOPHEN 325 MG TABLET 650 MG PO (12:47)
[2022-06-05] MEDS: IBUPROFEN 400 MG TABLET PO (12:47)
--- NOTE | 2022-06-05 13:24 | PC.NURSE ---
Addendum entered by Rachel Ramey R.N. 06/05/22 18:07: Pt received D/C orders Home instructions given w/understanding IV D/C intact. Pt escorted by staff via W/C to waiting vehicle. D/C in stable post op status. Original Note: Pt arrived from PACU A/O Denies any discomfort. Aquacell Dsg to right hip CDI. IVF infusing as per orders. PT to work with w/possible D/C this afternoon. Call light w/in reach, pt clls appropriately for needs. Continue w/plan of care
--- NOTE | 2022-06-05 14:30 | PT.IIE ---
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/25/19) Hx of cholecystectomy Hx of eye surgery (~2002) Hx of tonsillectomy Medical History (Last Reviewed 06/05/22 @ 12:12 by Philippe Quinn PA-C) Acid reflux Aortic valve disorder Urbina's esophagus BPH (benign prostatic hyperplasia) Chest pain, atypical HLD (hyperlipidemia) HTN (hypertension) Mitral valve disorder Overactive bladder Tricuspid valve disorder Physical Therapy Inpatient Evaluation/Re-Eval M1 PT/OT-IP Prior Functional Status Start: 06/05/22 16:29 Freq: NEEDED Status: Active Protocol: Document 06/05/22 14:30 AB (Rec: 06/05/22 16:54 AB [email or web address]) Medical Review Prior Functional Status Medical History Reviewed Yes Communication able to make needs known Mobility and Gait pt stated that he is modified idnependent with all mobilities and ambulation without AD but occasionally uses walking sticks for long distance ambulation Social History Household Members spouse Living Arrangements House Number of Floors (Floors) Two Floors Number of Stairs To Enter/Railing? 4 steps B rails to enter 10 steps L rail ascending to get to bedroom level Home Environment High Toilet,Walk in Shower Home Equipment Four Wheel Walker,Hand Held Shower,Grab Bars Near Toilet Additional Social History Comment has walking sticks M2 PT-IP Current Condition Start: 06/05/22 16:29 Freq: NEEDED Status: Active Protocol: Document 06/05/22 14:30 AB (Rec: 06/05/22 16:54 AB [id number]) Physical Therapy Current Condition Current Condition Evaluation Date 06/05/22 Treatment Diagnosis s/p R ERICA anterior approach; difficulty in walking Onset Date 06/05/22 M3 PT-IP Subjective Start: 06/05/22 16:29 Freq: NEEDED Status: Active Protocol: Document 06/05/22 14:30 AB (Rec: 06/05/22 16:54 AB [email or web address]) Subjective Physical Therapy Visit Type Type Initial Evaluation Visit Start Time 14:30 Visit Stop Time 15:25 Total Visit Minutes 55 Number of SUPERVISOR WORD PROCESSING Visits 0 Physical Therapy Visit Comments Patient Comments agreeable to do PT M4 PT-IP Mobility and Gait Start: 06/05/22 16:29 Freq: NEEDED Status: Active Protocol: Document 06/05/22 14:30 AB (Rec: 06/05/22 16:54 AB [id number]) PT-Bed Mobility Assessment Supine to Sit Supine to Sit Standby Assistance PT-Transfer Assessment Sit to and From Stand Sit to and from Stand Standby Assistance,Contact Guard Assistance,1 Person Assistance,Use of Upper Extremities Equipment Transfer Assistive Device Gait Belt,Front Wheeled Walker Orthotic/Prosthetic Devices or Brace: No Transfers Transfer Destination Chair Transfer Technique ambulated Transfer Ability Level of Assist Standby Assistance,Contact Guard Assistance,1 Person Assistance,Use of Upper Extremities Comments Mobility Comments educated pt on anterior hip precautions. BP in supine: 124 /56. completed supine to sit SBA. able to sit on EOB SBA. no c/o dizziness. completed sit to stand CGA and ambulated to the chair using FWW CGA. agreed to do stairs. completed sit to stand from chair CGA and ambulated ~ 20 ft. spouse present and initiated caregiver training with spouse . instructed spouse on how to assist pt with ambulation and completed ~ 125 ft using FWW CGA. educated on stair climbing using B rails on first set and completed with spouse assisting CGA. coompleted again using L rail ascending. spouse assisted with ascending but has difficulty assisting with descent. instructed pt to be steady and was able to demonstrate stair climbing SBA without need for spouse physical assistance. pt completed another set using L rail ascending and completed with SBA. pt ambulated back to his room SBA using FWW. Pt only has 4WW at home. Assessed ambulation using 4WW and completed safely. Left pt on chair. call light and table placed within reach. Gait Assessment Gait Gait Assistance Required: Standby Assistance,Contact Guard Assist Distance (Feet) 125 Able to Maintain Weight Bearing Status Yes During Gait Assistive Devices Assistive Device Gait Belt,Front Wheeled Walker ,4 Wheeled Walker Orthotic/Prosthetic Devices or Brace: No Gait Deviations General Gait Pattern Decreased Stride Length, Decreased Feet Clearance Factors Limiting Gait Function Factors Limiting Gait Function Decreased Activity Tolerance, Decreased Strength,Limited Range of Motion,Pain,Poor Balance,Poor Safety Awareness Stair Climbing Assessment Evaluation Level of Assist On Stairs Standby Assistance,Contact Guard Assistance Devices Stair Climbing Assistive Devices Left Railing,Right Railing Technique/Endurance Stair Climbing Direction Ascend and Descend Stair Climbing Technique Step to Step Number of Steps Climbed 3 Query Text: Stair Climbing Set # Repetitions (reps) 3 Comments Stair Climbing Comments pls refer to mobility section for details PT-Balance Assessment Sitting Balance and Reactions Static Sitting Balance Ability Normal Dynamic Sitting Balance Ability Normal Standing Balance and Reactions Static Standing Balance Ability Good Dynamic Standing Balance Ability Fair Device Used 4WW M5 PT-IP Objective Assessments Start: 06/05/22 16:29 Freq: NEEDED Status: Active Protocol: Document 06/05/22 14:30 AB (Rec: 06/05/22 16:54 AB [id number]) Orientation Orientation/Cognition Level of Alertness Alert Orientation Name,Age,Birthday,Month,Date, Year,Day of Week,Place, Situation Language Function Ability No Deficits Noted Safety Awareness Decreased Safety Awareness Memory Description No Deficits Noted Gross Range of Motion Lower Extremity ROM Assessment Within Functional Limits Strength Lower Extremity Strength Hip 4-/5 Knee 4-/5 Sensation Assessment Sensation Gross Sensation WNL Muscle Tone Muscle Tone WNL Yes M6 PT-IP Treatment Start: 06/05/22 16:29 Freq: NEEDED Status: Active Protocol: Document 06/05/22 14:30 AB (Rec: 06/05/22 16:54 AB [email or web address]) Physical Therapy Treatment Education Education Provided Precautions,Weight Bearing Status,Post-Op Packet,Safety M7 PT-IP Assessment and Plan Start: 06/05/22 16:29 Freq: NEEDED Status: Active Protocol: Document 06/05/22 14:30 AB (Rec: 06/05/22 16:54 [email or web address]) PT Summary Assessment and Plan Potential Rehabilitation Potential Good Status of Condition at Evaluation Stable Summary Impairments Pain,ROM,Strength,Balance, Coordination,Sensation,Tone, Cognition,Bed Mobility, Transfers,Gait,Activity Tolerance Assessment Summary pt s/p R ERICA anterior approach and plans to go home today. pt needed SBA to CGA with use of 4WW and spouse able to assist as needed. pt is set up for outpt PT. Goals Bed Mobility Goal Independent Transfer Goal Independent,Four Wheeled Walker Gait Goal Independent,Four Wheel Walker Gait Distance 200 Other Goals up/down 4 steps B rails mod I up/down 10 steps L rail ascending mod I Frequency of Treatment Frequency Of Treatment Twice a Day Treatment Plan Physical Therapy Treatment Plan Bed Mobility Training,Transfer Training,Gait Training, Therapeutic Exercise,Balance Retraining,Post Op Education, Discharge Planning,Hot or Cold Pack,Neuromuscular Re-ed, Coordination Retraining,Manual Therapy Precautions Anterior Hip Precautions No Hip Extension,No Hip External Rotation Weight Bearing Status Weight Bearing Status Weight Bear as Tolerated Allowed Weight Bearing Amount (enter % RLE WBAT or #) (%) Recommendations To Nursing Amount of Assist Needed 1 Person Assist Discharge Recommendations PT Discharge Recommendations Home with Assistance, Outpatient PT Transportation Needs at Discharge Private Vehicle
== END 2022-06-05 17:50 | disposition home or self-care (01) ==
LOC: AC 17:09 → OR 06-16 15:33
PROVIDERS: Family Provider Internal Medicine; PCP Internal Medicine; Referring Provider Orthopaedic Surgery; Visit Provider Orthopaedic Surgery
PROC: (CPT 27130; principal; 2022-06-05 07:45)
DX: M16.11 Unilateral primary osteoarthritis, right hip (principal); Z20.822 Contact with and (suspected) exposure to COVID-19
CPT/HCPCS: 27130; 73502; 87635; 97161; 97530; C1776; C9803; C9290; J0690; J1100; J2250; J2405; J2704; J3010

== ENCOUNTER → 2022-12-25 12:19 | Outpatient (CLI) | payer MEDICARE, OTHER, SELFPAY ==
[2022-06-05 11:24] VITALS: BMI 27.5
--- NOTE | 2022-12-25 12:22 | DI.ECHO.S_ITS ---
[facility] +---------+ : : [address] [address] : : : : [id number] : : : : Phone: [phone]---------+ Echocardiogram Report + + :Name: JENNIFER DORMAN Study Date: 12/25/2022 Height: 68 in : :[facility] ReadingLocation: Weight: 182 lb : : Gender: Male BSA: 2.0 m2 : :: 1940 Age: 82 yrs BP: 143/75 mmHg: :Reason For Study: Mitral regurgitation, Aortic insufficiency, : :Tricuspid regurgitation : :Ordering Physician: Gloria S : :India Arreguin Performed By: Kyara Martinez : :Referring: GLORIA ARREGUIN : + + Interpretation Summary The left ventricle is normal in size and wall thickness. The ejection fraction is estimated to be 60-65%. This is unchanged compared to the previous study. The right ventricle is grossly normal size. The right ventricular systolic function is normal. There is mild to moderate aortic regurgitation. Compared to the prior echo study, there has been no change in the severity of aortic regurgitation. There is mild to moderate tricuspid regurgitation. Compared to the prior echo exam, there has been no change in TR severity. The right ventricular systolic pressure is estimated to be at least 40.5 mmHg based on an estimated right atrial pressure of 8 mm Hg. Previously 37 mmHg. Mild atherosclerotic plaque(s) in the aortic arch. Procedure: A two-dimensional transthoracic echocardiogram with color flow and Doppler was performed. The study quality was technically good. There has been no significant change since the previous study. The patient was in sinus bradycardia with heart rates between 52-62 bpm during the exam. Left Ventricle: The left ventricle is normal in size and wall thickness. There is no thrombus. The ejection fraction is estimated to be 60-65%. This is unchanged compared to the previous study. There are no focal wall motion abnormalities. Diastolic parameters suggest a relaxation abnormality of the left ventricle, consistent with probable normal filling pressures. Right Ventricle: The right ventricle is grossly normal size. The right ventricular systolic function is normal. Atria: The left atrium is mildly dilated. There has been no significant change since the previous study. The right atrium is mildly dilated. There is no Doppler evidence for an interatrial shunt. Mitral Valve: The mitral valve leaflets appear borderline thickened, but open well. The mitral valve leaflets are mildly calcified. The mitral valve leaflets appear to open well. There is mild mitral regurgitation. Compared to the prior echo study, there has been no change in the severity of mitral regurgitation. Aortic Valve: The aortic valve is trileaflet. The aortic valve opens well. There is mild aortic valve sclerosis. There is mild to moderate aortic regurgitation. Compared to the prior echo study, there has been no change in the severity of aortic regurgitation. Tricuspid Valve: The tricuspid valve is normal. There is mild to moderate tricuspid regurgitation. Compared to the prior echo exam, there has been no change in TR severity. The right ventricular systolic pressure is estimated to be at least 40.5 mmHg based on an estimated right atrial pressure of 8 mm Hg. Pulmonic Valve: The pulmonic valve leaflets are thin and pliable; valve motion is normal. There is mild to moderate pulmonic regurgitation. Great Vessels: The aortic root is normal size. The ascending aorta is normal in size. Mild atherosclerotic plaque(s) in the aortic arch. The pulmonary artery is normal size. The IVC is dilated (diameter is greater than 2.1 cm) yet it collapses greater than 50% with a sniff. This suggests a right atrial pressure of 8 mm Hg. Pericardium/ Pleura There is no pericardial effusion. There is an anterior echo-free space consistent with a fat pad. There is no pleural effusion. MMode/2D Measurements & Calculations LVIDd: 4.0 cm LVOT diam: 1.9 cm LVIDs: 2.6 cm Ao root diam: 3.4 cm FS: 35.0 % asc Aorta Diam: 3.1 cm EPSS: 0.30 cm IVSd: 0.90 cm LVPWd: 1.0 cm LV diego. diameter/BSA (cm/m^2): 2.0 LV sys. diameter/BSA (cm/m^2): 1.3 LA dimension: 3.3 cm RA long axis: 5.4 cm LA A2 area: 21.3 cm2 RA area: 19.8 cm2 LA A4 area: 24.1 cm2 RA vol: 62.1 ml LA length (vol): 6.2 cm RA : 31.6 ml/m2 LA vol: 70.4 ml IVC diam: 2.2 cm LA vol index: 35.8 ml/m2 RVD1 (basal): 4.0 cm LVLs ap4: 5.7 cm LVLd ap2: 6.9 cm TAPSE_phl: 2.3 cm LVLs ap2: 6.1 cm Doppler Measurements & Calculations Ao V2 max: 118.0 cm/sec LVOT Max Junior: 93.3 cm/sec Ao V2 mean: 78.9 cm/sec LV V1 max P.5 mmHg Ao max P.0 mmHg LV V1 VTI: 20.6 cm Ao mean P.0 mmHg REYNALDO(I,D): 2.3 cm2 Ao V2 VTI: 25.5 cm REYNALDO(V,D): 2.2 cm2 sev ratio: 0.81 REYNALDO indexed to BSA (cm^2/m^2): 1.2 AI P1/2t: 781.0 msec AI dec slope: 165.0 cm/sec2 MV E max junior: 53.6 cm/sec TR max junior: 285.0 cm/sec MV A max junior: 73.7 cm/sec TR max P.5 mmHg MV E/A: 0.73 PA V2 max: 126.0 cm/sec Med Peak E' Junior: 7.2 cm/sec PA V2 mean: 80.3 cm/sec E/E' med: 7.5 PA mean P.0 mmHg Lat Peak E' Junior: 7.4 cm/sec E/E' lat: 7.3 E/e' average: 7.4 MV dec time: 0.28 sec MVA(VTI): 2.0 cm2 MV V2 mean: 40.7 cm/sec SV(LVOT): 58.4 ml MV mean P.0 mmHg MV V2 VTI: 29.4 cm AV P1/2t-pr_phl: 779.0 msec MV P1/2t-pr_phl: 82.0 msec AV VR_phl: 0.79 REYNALDO(VTI)/BSA_phl: 1.2 Reading Physician:05:55 PM
== END ==
PROVIDERS: Family Provider Internal Medicine; PCP Internal Medicine; Referring Provider Internal Medicine Cardiovascular Disease; Visit Provider Internal Medicine Cardiovascular Disease
DX: I08.3 Combined rheumatic disorders of mitral, aortic and tricuspid valves (principal)
CPT/HCPCS: 93306